=== PATIENT | female | born 1970 | race Caucasian/White ===

== ENCOUNTER 2023-11-30 11:04 | Emergency (ER) | payer OTHER ==
[~2023-11-30] VITALS: Ht 160 cm; Wt 77.3 kg
[2023-11-30 11:13] VITALS: TEMP 97.9
[2023-11-30] MEDS ORDERED: HYDR25TA2 PO (11:17)
[2023-11-30] MEDS ORDERED: METHOCARBAMOL 500 MG TABLET PO ONE (12:30)
[2023-11-30] MEDS ORDERED: KETOROLAC TROMETHAMINE 30 MG/ML VIAL IVP ONE (12:30)
[2023-11-30] MEDS ORDERED: METH-659 PO (12:42)
[2023-11-30] MEDS ORDERED: IBUP-1492 PO (12:42)
[2023-11-30] MEDS ORDERED: KETOROLAC TROMETHAMINE 60 MG/2 ML VIAL IM ONE (13:00)
[2023-11-30 13:03] VITALS: BP 116/76; PULSE 82; RESP 16
== END 2023-11-30 13:05 | disposition home or self-care (01) ==
LOC: EMS 11:04
DX: S13.4XXA Sprain of ligaments of cervical spine, initial encounter (principal); I10 Essential (primary) hypertension; F17.210 Nicotine dependence, cigarettes, uncomplicated; Z90.710 Acquired absence of both cervix and uterus; Z98.890 Other specified postprocedural states; V89.2XXA Person injured in unspecified motor-vehicle accident, traffic, initial encounter; Y93.89 Activity, other specified; Y92.89 Other specified places as the place of occurrence of the external cause; Y99.8 Other external cause status
CPT/HCPCS: 99285; 72125; 96372; J1885

== ENCOUNTER 2024-01-29 18:36 | Emergency (ER) | payer OTHER ==
[~2024-01-29] VITALS: Ht 162.6 cm; Wt 75.5 kg
[~2024-01-29 18:36] MED LIST: HYDR25TA2 PO; IBUP-1492 PO; METH-659 PO
[2024-01-29 18:41] VITALS: TEMP 99.1
[2024-01-29] MEDS ORDERED: GABA-1181 PO (18:46)
[2024-01-29] MEDS ORDERED: CYCL-448 PO (18:46)
[2024-01-29 18:56] LABS: COVID AG,FIA SOURCE NASAL SWAB
[2024-01-29 19:15] LABS: SARS-COV2 (COVID) ANTIGEN,FIA Negative (Negative)
[2024-01-29 19:16] LABS: INFLUENZA TYPE A NEGATIVE FOR TYPE A (NEGATIVE); INFLUENZA TYPE B NEGATIVE FOR TYPE B (NEGATIVE)
[2024-01-29] MEDS ORDERED: AMOX1TAB16 PO (19:32)
[2024-01-29] MEDS: AMOX TR/POT CLAV 875 MG/125 MG TABLET PO ONE (19:37)
[2024-01-29 19:46] VITALS: BP 154/82; PULSE 86; RESP 16
== END 2024-01-29 19:47 | disposition home or self-care (01) ==
LOC: EMS 18:36
DX: H66.93 Otitis media, unspecified, bilateral (principal); I10 Essential (primary) hypertension; Z87.891 Personal history of nicotine dependence; Z90.710 Acquired absence of both cervix and uterus; Z98.890 Other specified postprocedural states; Z91.040 Latex allergy status; Z20.822 Contact with and (suspected) exposure to COVID-19
CPT/HCPCS: 71045; 87804; 99284

== ENCOUNTER 2024-08-30 17:17 | Emergency (ER) | payer OTHER ==
[~2024-08-30] VITALS: Ht 162.6 cm; Wt 75.0 kg
[~2024-08-30 17:17] MED LIST changes: +AMOX-457 PO; +CYCL-448 PO; +GABA-1181 PO; -HYDR25TA2 PO; -METH-659 PO
[2024-08-30 17:24] VITALS: TEMP 99.7
[2024-08-30 17:48] LABS: COVID AG,FIA SOURCE NASAL SWAB
[2024-08-30 18:05] LABS: SARS-COV2 (COVID) ANTIGEN,FIA Negative (Negative)
[2024-08-30 18:06] LABS: INFLUENZA TYPE A NEGATIVE FOR TYPE A (NEGATIVE); INFLUENZA TYPE B NEGATIVE FOR TYPE B (NEGATIVE)
[2024-08-30 20:07] VITALS: BP 135/85; PULSE 76; RESP 14; O2SAT 98
[2024-08-30] MEDS ORDERED: ACET-66 PO (20:20)
[2024-08-30] MEDS ORDERED: CEPH-558 PO (20:20)
== END 2024-08-30 21:05 | disposition home or self-care (01) ==
LOC: EMS 17:17
DX: J18.9 Pneumonia, unspecified organism (principal); I10 Essential (primary) hypertension; Z90.710 Acquired absence of both cervix and uterus; Z87.891 Personal history of nicotine dependence; Z98.890 Other specified postprocedural states; Z91.040 Latex allergy status; Z20.822 Contact with and (suspected) exposure to COVID-19
CPT/HCPCS: 87804; 99283